=== PATIENT | female | born 2000 | race Caucasian/White ===

== ENCOUNTER 2022-01-06 12:21 | Emergency (ER) | payer OTHER ==
[2022-01-06 12:30] VITALS: BP 128/80; PULSE 116; RESP 18; TEMP 99.7; BMI 20.1
[2022-01-06] MEDS ORDERED: DEXAMETHASONE SOD PHOSPHATE 10 MG/1 ML VIAL PO ONE (13:14)
[2022-01-06] MEDS ORDERED: ONDANSETRON *ODT* 4 MG TABLET SL ONE (13:14)
[2022-01-06] MEDS ORDERED: ONDANSETRON *ODT* 4 MG TABLET ONE (13:15)
[2022-01-06 14:52] LABS: HCG,QUALITATIVE URINE Negative
[2022-01-06 14:53] LABS: EPI CELLS >36 /uL (0-25.1); HYALINE CASTS 3 /uL (0-3.1); PH,URINE 5.5 (5.0-8.0); URINE APPEARANCE CLEAR; URINE BACTERIA 609 /uL (0-1359); URINE BILIRUBIN NEGATIVE (NEGATIVE); URINE COLOR DK YELLOW; URINE GLUCOSE (UA) NEGATIVE (NEGATIVE); URINE KETONE 4+ (NEGATIVE); URINE LEUK ESTERASE NEGATIVE (NEGATIVE); URINE NITRITE NEGATIVE (NEGATIVE); URINE PROTEIN 1+ (NEGATIVE); URINE WBC 28 /uL (0-25.8)
[2022-01-06 15:12] LABS: URINE RBC 22 /uL (0-23.9)
== END 2022-01-06 15:17 | disposition home or self-care (01) ==
LOC: JER 12:21
DX: J09.X2 Influenza due to identified novel influenza A virus with other respiratory manifestations (principal)
CPT/HCPCS: 0241U-QW; 81003; 84703; 87086; 99283-25; J1100; Q0162

== ENCOUNTER 2022-01-29 13:37 | Emergency (ER) | payer OTHER ==
[2022-01-29 13:57] VITALS: BP 115/93; PULSE 133; RESP 18; TEMP 98.8; BMI 17.5
[2022-01-29] MEDS ORDERED: LACTATED RINGERS SOLUTION 1,000 ML/1,000 ML INFUS.BAG IV STA (14:28)
[2022-01-29] MEDS ORDERED: METOCLOPRAMIDE HCL INJECTION 10 MG/2 ML VIAL IVPUSH ONE (14:29)
[2022-01-29] MEDS ORDERED: METOCLOPRAMIDE HCL INJECTION 10 MG/2 ML VIAL ONE (15:16)
[2022-01-29 15:28] LABS: BASO % 0.4 % (0-2.0); EOS % 0.1 % (0-4.5); HEMOGLOBIN 13.4 GM/dL (10.7-15.3); LYMPH % 15.9 % (8-40); MCH 31.1 pg (25.7-33.7); MCHC 33.5 g/dl (32.0-36.0); MEAN CELL VOLUME 92.6 fl (80-96); MEAN PLT VOLUME 7.8 fl (7.5-11.1); MONO % 12.2 % (3.8-10.2); NEUT % 71.4 % (42.8-82.8); PLATELET COUNT 321 10^3/uL (134-434); RBC 4.31 M/mm3 (3.60-5.2); RDW 13.6 % (11.6-15.6); WHITE BLOOD COUNT 8.8 K/mm3 (4.0-10.0)
[2022-01-29 16:46] LABS: CALCIUM 9.3 mg/dL (8.5-10.1)
[2022-01-29 16:47] LABS: ALBUMIN 3.2 g/dl (3.4-5.0)
[2022-01-29 16:50] LABS: BLOOD UREA NITROGEN 16.2 mg/dL (7-18); CREATININE 0.6 mg/dL (0.55-1.3)
[2022-01-29 16:52] LABS: BILIRUBIN,TOTAL 0.9 mg/dL (0.2-1); TOT PROT 7.4 g/dl (6.4-8.2)
[2022-01-29 18:26] LABS: EPI CELLS >36 /uL (0-25.1); HCG,QUALITATIVE URINE Negative; HYALINE CASTS 1 /uL (0-3.1); URINE APPEARANCE CLEAR; URINE BACTERIA 307 /uL (0-1359); URINE BILIRUBIN NEGATIVE (NEGATIVE); URINE COLOR YELLOW; URINE GLUCOSE (UA) NEGATIVE (NEGATIVE); URINE KETONE 4+ (NEGATIVE); URINE LEUK ESTERASE NEGATIVE (NEGATIVE); URINE NITRITE NEGATIVE (NEGATIVE); URINE PROTEIN 1+ (NEGATIVE); URINE RBC 13 /uL (0-23.9); URINE WBC 24 /uL (0-25.8)
== END 2022-01-29 18:42 | disposition home or self-care (01) ==
LOC: JER 13:37
PROC: 3E033GC Introduction of Other Therapeutic Substance into Peripheral Vein, Percutaneous Approach (ICD-10-PCS; principal; 2022-01-29)
DX: R11.2 Nausea with vomiting, unspecified (principal); R19.7 Diarrhea, unspecified
CPT/HCPCS: 0241U-QW; 36415; 80053; 81003; 84703; 85025; 87070; 87086; 87651; 99284-25

== ENCOUNTER 2022-06-25 13:35 | Emergency (ER) | payer OTHER ==
[2022-06-25 13:53] VITALS: RESP 18; TEMP 98.3; BMI 19.5
[2022-06-25] MEDS ORDERED: SODIUM CHLORIDE 0.9% 500 ML INFUS.BAG IV ONE (14:34)
[2022-06-25] MEDS ORDERED: FAMOTIDINE 20 MG/50 ML IVPB 20 MG/50 ML MG IVPB ONE ×2 (14:34→14:46)
[2022-06-25] MEDS ORDERED: ONDANSETRON 4 MG/2 ML VIAL IVPUSH ONE (14:35)
[2022-06-25] MEDS ORDERED: ONDANSETRON 4 MG/2 ML VIAL ONE (14:45)
[2022-06-25 14:50] LABS: HEMATOCRIT 46.4 % (32.4-45.2); MCH 31.2 pg (25.7-33.7); MCHC 34.4 g/dl (32.0-36.0); MEAN CELL VOLUME 90.6 fl (80-96); MEAN PLT VOLUME 8.4 fl (7.5-11.1); PLATELET COUNT 190 10^3/uL (134-434); RBC 5.12 M/mm3 (3.60-5.2); WHITE BLOOD COUNT 4.6 K/mm3 (4.0-10.0)
[2022-06-25 15:09] LABS: POTASSIUM 3.3 mmol/L (3.5-5.1)
[2022-06-25 15:12] LABS: ALBUMIN 4.3 g/dl (3.4-5.0); BLOOD UREA NITROGEN 16.8 mg/dL (7-18); CALCIUM 9.3 mg/dL (8.5-10.1)
[2022-06-25 15:15] LABS: CREATININE 0.7 mg/dL (0.55-1.3)
[2022-06-25 15:17] LABS: TOT PROT 8.3 g/dl (6.4-8.2)
[2022-06-25 16:04] LABS: EPI CELLS >36 /uL (0-25.1); HYALINE CASTS 3 /uL (0-3.1); PH,URINE 5.5 (5.0-8.0); URINE APPEARANCE CLEAR; URINE BACTERIA 617 /uL (0-1359); URINE BILIRUBIN NEGATIVE (NEGATIVE); URINE COLOR YELLOW; URINE GLUCOSE (UA) NEGATIVE (NEGATIVE); URINE KETONE 4+ (NEGATIVE); URINE LEUK ESTERASE NEGATIVE (NEGATIVE); URINE NITRITE NEGATIVE (NEGATIVE); URINE PROTEIN 1+ (NEGATIVE)
[2022-06-25 16:10] LABS: URINE RBC 25.6 /uL (0-23.9); URINE WBC 56.9 /uL (0-25.8)
[2022-06-25] MEDS ORDERED: POTASSIUM CHLORIDE ORAL LIQUID 20 MEQ/15 ML PO ONE (18:48)
[2022-06-25] MEDS ORDERED: POTASSIUM CHLORIDE ORAL LIQUID 20 MEQ/15 ML ONE (18:55)
[2022-06-25] MEDS ORDERED: METOCLOPRAMIDE HCL INJECTION 10 MG/2 ML VIAL IVPUSH ONE (19:12)
[2022-06-25] MEDS ORDERED: METOCLOPRAMIDE HCL INJECTION 10 MG/2 ML VIAL ONE (19:14)
[2022-06-25 19:37] VITALS: BP 119/80; PULSE 78
== END 2022-06-25 20:02 | disposition home or self-care (01) ==
LOC: JER 13:35
PROC: 3E033GC Introduction of Other Therapeutic Substance into Peripheral Vein, Percutaneous Approach (ICD-10-PCS; principal; 2022-06-25)
PROC: 3E033GC Introduction of Other Therapeutic Substance into Peripheral Vein, Percutaneous Approach (ICD-10-PCS; 2022-06-25)
PROC: 3E033GC Introduction of Other Therapeutic Substance into Peripheral Vein, Percutaneous Approach (ICD-10-PCS; 2022-06-25)
PROC: 3E033GC Introduction of Other Therapeutic Substance into Peripheral Vein, Percutaneous Approach (ICD-10-PCS; 2022-06-25)
DX: R11.10 Vomiting, unspecified (principal)
CPT/HCPCS: 36415; 74177-TC; 80053; 81003; 84703; 85027; 87086; 87186; 99285-25; Q9967

== ENCOUNTER 2023-07-30 04:03 | Inpatient (IN) | payer OTHER ==
[2023-07-30] MEDS ORDERED: ACETAMINOPHEN INJECTION 100 ML IVPB ONE ×2 (04:55→12:32)
[2023-07-30] MEDS ORDERED: ONDANSETRON 4 MG/2 ML VIAL ONE (04:55)
[2023-07-30] MEDS: SODIUM CHLORIDE 0.9% 500 ML INFUS.BAG IV ONE ×2 (05:10→10:46)
[2023-07-30] MEDS: ACETAMINOPHEN 1000 MG/100 ML BAG IVPB ONE (05:10)
[2023-07-30] MEDS: ONDANSETRON 4 MG/2 ML VIAL IVPUSH ONE (05:10)
[2023-07-30 05:33] LABS: BASO % 0.3 % (0-2.0); EOS % 0.2 % (0-4.5); HEMATOCRIT 37.9 % (32.4-45.2); HEMOGLOBIN 13.1 GM/dL (10.7-15.3); LYMPH % 12.3 % (8-40); MCHC 34.7 g/dl (32.0-36.0); MEAN CELL VOLUME 95.2 fl (80-96); MEAN PLT VOLUME 8.5 fl (7.5-11.1); MONO % 10.8 % (3.8-10.2); NEUT % 76.4 % (42.8-82.8); PLATELET COUNT 194 10^3/uL (134-434); RBC 3.98 M/mm3 (3.60-5.2); RDW 13.2 % (11.6-15.6); WHITE BLOOD COUNT 10.6 K/mm3 (4.0-10.0)
[2023-07-30 05:45] LABS: POTASSIUM 3.2 mmol/L (3.5-5.1)
[2023-07-30 05:47] LABS: ALBUMIN 3.5 g/dl (3.4-5.0); BLOOD UREA NITROGEN 10.3 mg/dL (7-18); CALCIUM 9.1 mg/dL (8.5-10.1)
[2023-07-30 05:50] LABS: CREATININE 0.7 mg/dL (0.55-1.3)
[2023-07-30 05:52] LABS: BILIRUBIN,TOTAL 1.7 mg/dL (0.2-1); TOT PROT 6.7 g/dl (6.4-8.2)
[2023-07-30 06:29] LABS: MAGNESIUM 2.1 mg/dL (1.8-2.4)
[2023-07-30] MEDS ORDERED: CEFTRIAXONE 1 GM/50 ML BAG ONE (08:13)
[2023-07-30] MEDS: CEFTRIAXONE 1 GM in DEXTROSE 5%-WATER - 50 ML IVPB ONE (08:40)
[2023-07-30 08:58] LABS: EPI CELLS 13 /uL (0-25.1); HYALINE CASTS 1 /uL (0-3.1); URINE APPEARANCE TURBID; URINE BACTERIA >9,000 /uL (0-1359); URINE BILIRUBIN NEGATIVE (NEGATIVE); URINE COLOR YELLOW; URINE GLUCOSE (UA) NEGATIVE (NEGATIVE); URINE KETONE 2+ (NEGATIVE); URINE LEUK ESTERASE 2+ (NEGATIVE); URINE NITRITE POSITIVE (NEGATIVE); URINE PROTEIN 1+ (NEGATIVE); URINE RBC 122 /uL (0-23.9); URINE WBC 5368 /uL (0-25.8)
[2023-07-30] MEDS ORDERED: KCL 10 MEQ IVPB 10 MEQ/100 ML INFUS.BAG IVPB ONE ×2 (09:58→11:25)
[2023-07-30] MEDS: KCL 10 MEQ IVPB 10 MEQ/100 ML INFUS.BAG IVPB SCH (10:10)
[2023-07-30] MEDS ORDERED: NALOXONE HCL 0.4 MG/ML VIAL IVPUSH PRN (11:39)
[2023-07-30] MEDS ORDERED: LACTATED RINGERS SOLUTION 1,000 ML IV SCH (11:45)
[2023-07-30] MEDS: ACETAMINOPHEN 1000 MG/100 ML BAG IVPB PRN ×2 (12:37→18:22)
[2023-07-30 13:29] VITALS: BMI 18.3
[2023-07-30] MEDS: SODIUM CHLORIDE 1,000 ML IV SCH (13:53)
[2023-07-30] MEDS: POTASSIUM CHLORIDE ORAL LIQUID 20 MEQ/15 ML PO ONE (14:03)
[2023-07-30 16:43] LABS: POTASSIUM 3.5 mmol/L (3.5-5.1)
[2023-07-30 16:44] LABS: CALCIUM 8.2 mg/dL (8.5-10.1)
[2023-07-30 16:45] LABS: BLOOD UREA NITROGEN 8.6 mg/dL (7-18)
[2023-07-30 16:48] LABS: CREATININE 0.5 mg/dL (0.55-1.3)
[2023-07-30] MEDS: ONDANSETRON 4 MG/2 ML VIAL IVPUSH PRN (17:20)
[2023-07-30 23:21] VITALS: RESP 18
[2023-07-31] MEDS ORDERED: traMADol HCL 50 MG TABLET PO PRN (06:14)
[2023-07-31] MEDS ORDERED: ACETAMINOPHEN 1000 MG/100 ML BAG IVPB PRN ×2 (06:15→10:22)
[2023-07-31] MEDS ORDERED: ONDANSETRON 4 MG/2 ML VIAL IVPUSH PRN (10:22)
[2023-07-31] MEDS: ENOXAPARIN NA (PORCINE) 40 MG/0.4 ML DISP.SYRIN SQ SCH (10:52)
[2023-07-31] MEDS: CEFTRIAXONE 1 GM in DEXTROSE 5%-WATER - 50 ML IVPB SCH (10:52)
[2023-07-31] MEDS: ACETAMINOPHEN 1000 MG/100 ML BAG IVPB PRN (14:57)
[2023-07-31 23:51] VITALS: BP 104/59; PULSE 68; TEMP 99.1
== END 2023-07-31 23:50 | disposition left against medical advice (07) | DRG 463 ==
LOC: JER 04:03 → JERBED 10:56 → J6S 13:13
PROVIDERS: ADMIT Internal Medicine; ATTEND Internal Medicine
DX: N10 Acute pyelonephritis (principal); E87.6 Hypokalemia; R31.9 Hematuria, unspecified; M54.9 Dorsalgia, unspecified; J45.909 Unspecified asthma, uncomplicated; R00.0 Tachycardia, unspecified
CPT/HCPCS: 0241U-QW; 36415; 74177-TC; 76775-TC; 80048; 80053; 81003; 83735; 84703; 85025; 87040; 87086; 87186; 93005; 93010; 99285-25; J0131